=== PATIENT | male | born 1985 | race American Indian/Alaskan Native ===

== ENCOUNTER 2020-01-27 08:18 | Emergency (ER) | payer SELFPAY ==
--- NOTE | 2020-01-27 08:46 | Emergency Department Report ---
ED ENT HPI - General Chief complaint: Dental/Oral Stated complaint: TOOTH PAIN Time Seen by Provider: 01/27/20 08:36 Source: patient Mode of arrival: Ambulatory Limitations: No Limitations - History of Present Illness Initial comments: Patient is a 34-year-old male who presents emergency room with complaints of dental pain. He states that 5 days ago he pulled his own tooth out. He states that he has been taking BC Goody powder with some relief but states that it is no longer working. He states that he does see blood whenever he brushes his teeth but otherwise has no bleeding. He denies any fever, vomiting, difficulty swallowing, facial swelling. He states he has a past medical history of HIV. No allergies to medications. - Related Data Previous Rx's Medication Instructions Recorded Last Taken Type Azithromycin [Zithromax Z-CALEB] 250 mg PO DAILY #6 tablet 03/17/16 Unknown Rx Benzonatate [Tessalon Perles] 100 mg PO Q8HR PRN #30 capsule 03/17/16 Unknown Rx Ibuprofen [Motrin] 800 mg PO Q8HR PRN #30 tablet 03/24/16 Unknown Rx Lidocaine Viscous 2% 15 ml MM BID #100 ml 03/24/16 Unknown Rx Chlorhexidine Mouthwash [Peridex] 15 ml MM BID #1 bottle 01/27/20 Unknown Rx Naproxen [EC-Naprosyn] 500 mg PO BID PRN #14 tablet. 01/27/20 Unknown Rx Penicillin Vk [Veetids TAB] 500 mg PO QID 7 Days #56 tablet 01/27/20 Unknown Rx Allergies Allergy/AdvReac Type Severity Reaction Status Date / Time No Known Allergies Allergy Unverified 03/16/16 23:56 ED Dental HPI - General Chief complaint: Dental/Oral Stated complaint: TOOTH PAIN Time Seen by Provider: 01/27/20 08:36 Source: patient Mode of arrival: Ambulatory Limitations: No Limitations - Related Data Previous Rx's Medication Instructions Recorded Last Taken Type Azithromycin [Zithromax Z-CALEB] 250 mg PO DAILY #6 tablet 03/17/16 Unknown Rx Benzonatate [Tessalon Perles] 100 mg PO Q8HR PRN #30 capsule 03/17/16 Unknown Rx Ibuprofen [Motrin] 800 mg PO Q8HR PRN #30 tablet 03/24/16 Unknown Rx Lidocaine Viscous 2% 15 ml MM BID #100 ml 03/24/16 Unknown Rx Chlorhexidine Mouthwash [Peridex] 15 ml MM BID #1 bottle 01/27/20 Unknown Rx Naproxen [EC-Naprosyn] 500 mg PO BID PRN #14 tablet. 01/27/20 Unknown Rx Penicillin Vk [Veetids TAB] 500 mg PO QID 7 Days #56 tablet 01/27/20 Unknown Rx Allergies Allergy/AdvReac Type Severity Reaction Status Date / Time No Known Allergies Allergy Unverified 03/16/16 23:56 ED Review of Systems ROS: Stated complaint: TOOTH PAIN Other details as noted in HPI Comment: All other systems reviewed and negative ED Past Medical Hx - Past Medical History Previous Medical History?: Yes Hx HIV: Yes - Surgical History Past Surgical History?: No - Social History Smoking Status: Never Smoker Substance Use Type: None - Medications Home Medications: Home Medications Medication Instructions Recorded Confirmed Last Taken Type Azithromycin [Zithromax Z-CALEB] 250 mg PO DAILY #6 tablet 03/17/16 Unknown Rx Benzonatate [Tessalon Perles] 100 mg PO Q8HR PRN #30 capsule 03/17/16 Unknown Rx Ibuprofen [Motrin] 800 mg PO Q8HR PRN #30 tablet 03/24/16 Unknown Rx Lidocaine Viscous 2% 15 ml MM BID #100 ml 03/24/16 Unknown Rx Chlorhexidine Mouthwash [Peridex] 15 ml MM BID #1 bottle 01/27/20 Unknown Rx Naproxen [EC-Naprosyn] 500 mg PO BID PRN #14 tablet. 01/27/20 Unknown Rx Penicillin Vk [Veetids TAB] 500 mg PO QID 7 Days #56 tablet 01/27/20 Unknown Rx ED Physical Exam - General Limitations: No Limitations General appearance: alert, in no apparent distress - Head Head exam: Present: atraumatic, normocephalic - Eye Eye exam: Present: normal appearance - ENT ENT exam: Present: mucous membranes moist, other (partially missing tooth prese nt to the right lower back molar, there are a couple of other teeth that are cracked/partially missing, adjacent to the tooth is erythema and mild edema of the gumline, gum appears irritated, there is no fluctuance, no bleeding, no drainage, uvula is midline, no uvular edema or deviation, no tongue elevation, no muffled voice, no trismus) - Neurological Exam Neurological exam: Present: alert, oriented X3 - Psychiatric Psychiatric exam: Present: normal affect, normal mood - Skin Skin exam: Present: warm, dry ED Course Vital Signs 01/27/20 01/27/20 08:20 09:03 Temperature 97.9 F Pulse Rate 70 72 Respiratory 20 18 Rate Blood Pressure 144/105 Blood Pressure 140/100 [Left] O2 Sat by Pulse 97 98 Oximetry ED Medical Decision Making - Lab Data Vital Signs 01/27/20 01/27/20 08:20 09:03 Temperature 97.9 F Pulse Rate 70 72 Respiratory 20 18 Rate Blood Pressure 144/105 Blood Pressure 140/100 [Left] O2 Sat by Pulse 97 98 Oximetry - Medical Decision Making Patient is a 34-year-old male who presents emergency room with complaints of dental pain. He states that 5 days ago he pulled his own tooth out. He states that he has been taking BC Goody powder with some relief but states that it is no longer working. He states that he does see blood whenever he brushes his teeth but otherwise has no bleeding. He denies any fever, vomiting, difficulty swallowing, facial swelling. He states he has a past medical history of HIV. No allergies to medications. VSS. on exam: partially missing tooth present to the right lower back molar, there are a couple of other teeth that are cracked/partially missing, adjacent to the tooth is erythema and mild edema of the gumline, gum appears irritated, there is no fluctuance, no bleeding, no drainage, uvula is midline, no uvular edema or deviation, no tongue elevation, no muffled voice, no trismus. Examination appears consistent with dental caries and gingivitis. No signs of dental abscess at this time. Given that patient pulled his own tooth and he has a history of immunosuppression secondary to HIV, patient will be placed on antibiotics to prevent further infection and given multiple resources in order to have close follow-up with a dentist. Patient given prescription for chlorhexidine mouthwash, penicillin VK, naproxen. Advised patient Please use medication as prescribed. Please follow-up with a dentist. It is very important that you follow-up with a dentist. Return to emergency room for any new or worsening symptoms. - Differential Diagnosis dental caries, dentalgia, dental abscess, ludwigs, gingivitis Critical care attestation.: If time is entered above; I have spent that time in minutes in the direct care of this critically ill patient, excluding procedure time. ED Disposition Clinical Impression: Dental caries, Gingivitis, Dentalgia Teeth missing due to caries Qualifiers: Tooth loss class: unspecified tooth loss Qualified Code(s): K08.139 - Complete loss of teeth due to caries, unspecified class Disposition: TO HOME OR SELFCARE Is pt being admited?: No Does the pt Need Aspirin: No Condition: Stable Instructions: Dental Caries (ED), Gingivitis (ED) Additional Instructions: Please use medication as prescribed. Please follow-up with a dentist. It is very important that you follow-up with a dentist. Return to emergency room for any new or worsening symptoms. Prescriptions: Naproxen [EC-Naprosyn] 500 mg PO BID PRN #14 tablet.dr PITTS Reason: pain Chlorhexidine Mouthwash [Peridex] 15 ml MM BID #1 bottle Penicillin Vk [Veetids TAB] 500 mg PO QID 7 Days #56 tablet Referrals: [facility] [Outside] - 2-3 Days [facility] [Outside] - 2-3 Days Time of Disposition: 08:45 Print Language: YEMENI
[2020-01-27 09:04] VITALS: BP 140/100
== END 2020-01-27 09:03 | disposition home or self-care (01) ==
LOC: ED 08:18
DX: K02.9 Dental caries, unspecified (principal); K05.00 Acute gingivitis, plaque induced; K08.139 Complete loss of teeth due to caries, unspecified class
CPT/HCPCS: 99282

== ENCOUNTER 2022-02-08 21:18 | Emergency (ER) | payer SELFPAY ==
[2022-02-09] MEDS ORDERED: HYDROcodone/ACETAMINOPHEN 5-325 MG TAB PO ONE (08:20)
--- NOTE | 2022-02-09 08:20 | Emergency Department Report ---
ED General Adult HPI - General Chief complaint: Extremity Injury, Lower Stated complaint: TOENAIL CAME OFF Time Seen by Provider: 02/09/22 07:36 Source: patient Mode of arrival: Ambulatory Limitations: No Limitations - History of Present Illness Initial comments: 36-year-old male no significant past medical history reports to the ER with complaints of left great toe nail pain. Patient reports that he noticed his nail will start to come off the nailbed this morning when he took off his shoe after getting off work from [employer]. Patient denies any direct injury to his right foot. No other acute signs and symptoms noted. Patient reports his pain is a 7 out of 10 has not taken anything for his discomfort. - Related Data Previous Rx's Medication Instructions Recorded Last Taken Type Azithromycin [Zithromax Z-CALEB] 250 mg PO DAILY #6 tablet 03/17/16 Unknown Rx Benzonatate [Tessalon Perles] 100 mg PO Q8HR PRN #30 capsule 03/17/16 Unknown Rx Ibuprofen [Motrin] 800 mg PO Q8HR PRN #30 tablet 03/24/16 Unknown Rx Lidocaine Viscous 2% 15 ml MM BID #100 ml 03/24/16 Unknown Rx Chlorhexidine Mouthwash [Peridex] 15 ml MM BID #1 bottle 01/27/20 Unknown Rx Naproxen [EC-Naprosyn] 500 mg PO BID PRN #14 tablet. 01/27/20 Unknown Rx Penicillin Vk [Veetids TAB] 500 mg PO QID 7 Days #56 tablet 01/27/20 Unknown Rx Ibuprofen [Motrin] 600 mg PO Q8H PRN 6 Days #18 tablet 02/09/22 Unknown Rx Allergies Allergy/AdvReac Type Severity Reaction Status Date / Time No Known Allergies Allergy Verified 02/08/22 23:00 ED Review of Systems ROS: Stated complaint: TOENAIL CAME OFF Other details as noted in HPI Comment: All other systems reviewed and negative Skin: other (Left great toe nail) ED Past Medical Hx - Past Medical History Previous Medical History?: Yes Hx HIV: Yes - Surgical History Past Surgical History?: No - Social History Smoking Status: Never Smoker Substance Use Type: None - Medications Home Medications: Home Medications Medication Instructions Recorded Confirmed Last Taken Type Azithromycin [Zithromax Z-CALEB] 250 mg PO DAILY #6 tablet 03/17/16 Unknown Rx Benzonatate [Tessalon Perles] 100 mg PO Q8HR PRN #30 capsule 03/17/16 Unknown Rx Ibuprofen [Motrin] 800 mg PO Q8HR PRN #30 tablet 03/24/16 Unknown Rx Lidocaine Viscous 2% 15 ml MM BID #100 ml 03/24/16 Unknown Rx Chlorhexidine Mouthwash [Peridex] 15 ml MM BID #1 bottle 01/27/20 Unknown Rx Naproxen [EC-Naprosyn] 500 mg PO BID PRN #14 tablet.dr 01/27/20 Unknown Rx Penicillin Vk [Veetids TAB] 500 mg PO QID 7 Days #56 tablet 01/27/20 Unknown Rx Ibuprofen [Motrin] 600 mg PO Q8H PRN 6 Days #18 tablet 02/09/22 Unknown Rx ED Physical Exam - General Limitations: No Limitations General appearance: alert, in no apparent distress - Head Head exam: Present: atraumatic, normocephalic - Eye Eye exam: Present: normal appearance - ENT ENT exam: Present: mucous membranes moist - Neck Neck exam: Present: normal inspection - Respiratory Respiratory exam: Present: normal lung sounds bilaterally. Absent: respiratory distress - Cardiovascular Cardiovascular Exam: Present: regular rate, normal rhythm. Absent: systolic murmur, diastolic murmur, rubs, gallop - GI/Abdominal GI/Abdominal exam: Present: soft, normal bowel sounds - Rectal Rectal exam: Present: deferred - Extremities Exam Extremities exam: Present: normal inspection - Back Exam Back exam: Present: normal inspection - Neurological Exam Neurological exam: Present: alert, oriented X3 - Psychiatric Psychiatric exam: Present: normal affect, normal mood - Skin Skin exam: Present: warm, dry, intact, normal color, other (Right great toenail upper distal end of the toenail is off nailbed. No active bleeding noted. Nail has fungus. As nail bed is brown in color as well as the rest of his toenails. No clinical suspicion of infection noted.). Absent: rash ED Course Vital Signs 02/08/22 22:58 Temperature 98.2 F Pulse Rate 65 Respiratory 18 Rate Blood Pressure 126/78 [Left] O2 Sat by Pulse 99 Oximetry ED Medical Decision Making - Medical Decision Making 36-year-old male no significant past medical history reports to the ER with complaints of left great toe nail pain. Patient reports that he noticed his nail will start to come off the nailbed this morning when he took off his shoe after getting off work from [employer]. Patient denies any direct injury to his right foot. No other acute signs and symptoms noted. Patient reports his pain is a 7 out of 10 has not taken anything for his discomfort. Left great toe nail is slightly hanging over the left great toe with the distal end of toenail slightly off nailbed. No active bleeding noted. Discoloration is noted to all toe nail beds with brown in nature of color. No active clinical signs of infection noted. Patient informed to clip the distal end of his toenails as majority of his toenail still attached to his nailbed. 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 Patient agrees with plan of care and verbalized understanding. No further work-up is needed. Vital Signs 02/08/22 22:58 Temperature 98.2 F Pulse Rate 65 Respiratory 18 Rate Blood Pressure 126/78 [Left] O2 Sat by Pulse 99 Oximetry Critical care attestation.: If time is entered above; I have spent that time in minutes in the direct care of this critically ill patient, excluding procedure time. ED Disposition Clinical Impression: Pain of left great toe Nail avulsion, toe Qualifiers: Encounter type: initial encounter Qualified Code(s): S91.209A - Unspecified open wound of unspecified toe(s) with damage to nail, initial encounter Disposition: HOME / SELF CARE / HOMELESS Is pt being admited?: No Condition: Stable Instructions: How to Use Cold Therapy, Nail Avulsion, Athlete's Foot Prescriptions: Ibuprofen [Motrin] 600 mg PO Q8H PRN 6 Days #18 tablet PRN Reason: Pain Referrals: ELPIDIO RANDOLPH MD [Primary Care Provider] - 3-5 Days
[2022-02-09 09:01] VITALS: BP 116/80
== END 2022-02-09 09:01 | disposition home or self-care (01) ==
LOC: ED 21:18
DX: S91.202A Unspecified open wound of left great toe with damage to nail, initial encounter (principal); M79.675 Pain in left toe(s); X58.XXXA Exposure to other specified factors, initial encounter; Y93.89 Activity, other specified; Y92.89 Other specified places as the place of occurrence of the external cause; Y99.8 Other external cause status
CPT/HCPCS: 99282